=== PATIENT | female | born 1940 | race Caucasian/White ===

== ENCOUNTER → 2017-03-05 | Outpatient (CLI) | payer OTHER ==
[~2017-03-05] MED LIST: APIX1TAB3 PO; ASCO500T16 PO; CALC-354 PO; CHOL1CAP51 PO; CLC100 PO; CYAN100028 PO; DORZ2SOL OPB; DORZ2SOL19 OPR; ENOX40IN SQ; FRRG PO; FURO-85 PO; HYDR25TA4 PO; MAGNESIUM PO; METO25TA3 PO; MULT-190 PO; MULT-360 PO; OMEG10007 PO; OXYC-57 PO; POTA10CA28 PO; PRED1SUS3 OPR; RED1CAP5 PO; TIMO0.2528 OPR; VTMD1000 PO; [UNRECOGNIZED DRUG - CODE] OPR
== END | disposition home or self-care (01) ==
LOC: C.RDSM 09:43
PROVIDERS: ATTEND Physical Medicine & Rehabilitation Sports Medicine
DX: M25.512 Pain in left shoulder (principal)

== ENCOUNTER 2017-06-04 10:20 | Observation (INO) | payer OTHER ==
[2017-05-04 13:04] VITALS: BMI 40.0
--- NOTE | 2017-05-04 13:54 | PAT Medication Instructions ---
Service Date May 04, 2017. Current Home Medication List Apixaban (Eliquis), 5 MG PO BID Calcium Carbonate-Cholecalcife (Caltrate 600+D), 1 TAB PO QAM Cholecalciferol (Vitamin D3), 1 TAB PO QAM Dorzolamide Hcl (Trusopt), 1 DROP OPB QAM Dorzolamide Hcl (Trusopt Oph), 1 DROPS OPR QAM Fish Oil ([place]-3), 1 CAP PO QAM Furosemide (Lasix), 20 MG PO QAM Metoprolol Succ (Toprol Xl) (Toprol-Xl), 25 MG PO QAM Ocuvite Preservision (Ocuvite Preservision), 1 TAB PO BID Oxycodone/Acetaminophen 5MG/325MG (Percocet 5MG/325MG), 0.5 TAB PO Q6H PRN for Pain Prednisolone Acetate (Ophth) (Pred Forte 1% Oph), 1 DROPS OPR Q3D Red Yeast Rice Extract (Red Yeast Rice), 1 CAP PO QAM Timolol Maleate (Ophth) (Timoptic), 1 DROP OPR QAM [Magnesium], 250 MG PO QAM Medication Instructions For Your Scheduled Surgery - Check with surgeon and undercollar baster for instructions: Apixaban (Eliquis), 5 MG PO BID - Hold the following medications 2 weeks prior to surgery: Red Yeast Rice Extract (Red Yeast Rice), 1 CAP PO QAM Fish Oil ([place]-3), 1 CAP PO QAM - Continue as directed: Prednisolone Acetate (Ophth) (Pred Forte 1% Oph), 1 DROPS OPR Q3D - Hold the following medications the morning of surgery: Calcium Carbonate-Cholecalcife (Caltrate 600+D), 1 TAB PO QAM Cholecalciferol (Vitamin D3), 1 TAB PO QAM Furosemide (Lasix), 20 MG PO QAM Ocuvite Preservision (Ocuvite Preservision), 1 TAB PO BID [Magnesium], 250 MG PO QAM - Take the following medications the morning of surgery with a sip of water: Timolol Maleate (Ophth) (Timoptic), 1 DROP OPR QAM Oxycodone/Acetaminophen 5MG/325MG (Percocet 5MG/325MG), 0.5 TAB PO Q6H PRN for Pain (okay to take up to 4 hours prior to surgery if needed) .Metoprolol Succ (Toprol Xl) (Toprol-Xl), 25 MG PO QAM Dorzolamide Hcl (Trusopt Oph), 1 DROPS OPR QAM Dorzolamide Hcl (Trusopt), 1 DROP OPB QAM - Take the following medications as scheduled the night before surgery: Oxycodone/Acetaminophen 5MG/325MG (Percocet 5MG/325MG), 0.5 TAB PO Q6H PRN for Pain (if needed) Ocuvite Preservision (Ocuvite Preservision), 1 TAB PO BID If you have any questions please call us at [phone] or [phone] or [phone]
[2017-05-04 14:16] LABS: BASO % 0.7 %; BASO ABS # 0.06 K/uL (0-0.2); EOS % 2.4 %; HEMATOCRIT 37.4 % (37-47); HEMOGLOBIN 12.2 g/dL (12.0-16.0); IG# 0.02 K/uL (0.00-0.02); LYMPH % 22.2 %; LYMPH ABS # 1.85 K/uL (1.2-3.4); MEAN CELL VOLUME 89.5 fL (80-100); MEAN CORPUSCULAR HEMOGLOBIN 29.2 pg (25-34); MEAN CORPUSCULAR HGB CONC 32.6 g/dl (32-36); MEAN PLATELET VOLUME 11.2 fL (7.4-10.4); MONO % 6.8 %; MONO ABS # 0.57 K/uL (0.11-0.59); NEUT % 67.7 %; NEUT ABS # 5.64 K/uL (1.4-6.5); PLATELET COUNT 301 K/uL (130-400); RED CELL DISTRIBUTION WIDTH CV 14.1 % (11.5-14.5); RED CELL DISTRIBUTION WIDTH SD 46.2 fL (36.4-46.3); WHITE BLOOD COUNT 8.34 K/uL (4.8-10.8)
[2017-05-04 14:23] LABS: CALCIUM 9.3 mg/dl (8.5-10.1); CREATININE 1.53 mg/dl (0.60-1.20); POTASSIUM 4.1 mmol/L (3.5-5.1)
[2017-05-04 14:24] LABS: INR 1.1 (0.9-1.1)
--- NOTE | 2017-05-04 14:33 | DIAGNOSTIC IMAGING REPORT ---
CHEST 2 VIEWS ROUTINE CLINICAL HISTORY: 76 years-old Female presenting with preoperative assessment. TECHNIQUE: PA and lateral views of the chest were obtained. COMPARISON: 07/07/2013. FINDINGS: Atherosclerosis of the aortic arch. Cardiac silhouette normal in size. Lungs and pleural spaces clear. Degenerative changes of the thoracic spine. Degenerative changes of the left glenohumeral joint. Degenerative changes of the acromioclavicular joints. Cholecystectomy clips noted. IMPRESSION: 1. No acute cardiopulmonary disease. Electronically signed by: Jass Fournier M.D. 05/04/2017 2:32 PM Dictated Date/Time: 05/04/2017 2:31 PM
--- NOTE | 2017-06-03 16:14 | HISTORY & PHYSICAL EXAMINATION ---
DATE OF ADMISSION: 06/04/2017 CHIEF COMPLAINT: Rotator cuff arthropathy of the left shoulder. HISTORY OF PRESENT ILLNESS: Mary is a pleasant 76-year-old female who has been having a 3-month history of left shoulder pain and weakness. She had very mild crepitus in her shoulder, but full range of motion until she had a cardiac procedure done in January 2017. She woke from the surgery with very limited range of motion of her shoulder. She said she was shocked during the surgery and that may have contributed to it. Unfortunately, she has been having a lot of shoulder pain. She was initially followed by Dr. Rai of our [facility]. He gave her multiple injections and treated her conservatively, but unfortunately conservative treatment was not helping. X-rays and an MRI of her shoulder showed advanced osteoarthritis and fatty atrophy of the rotator cuff and large cuff tear. After failing conservative treatment, she elected to proceed with a reverse left shoulder arthroplasty. PAST MEDICAL HISTORY: Significant for osteoarthritis, hyperlipidemia and hypertension. PAST SURGICAL HISTORY: Significant for a heart catheterization, bilateral total knee arthroplasties, cholecystectomy, appendectomy, tonsillectomy, and cataract procedures. ALLERGIES: SURGICAL TAPE AND ANY IV PENICILLIN. MEDICATIONS: Include Eliquis, metoprolol, Lasix, prednisone eyedrops, timolol, and dorzolamide eye drops. FAMILY HISTORY: Significant for stroke and heart disease. SOCIAL HISTORY: The patient is . Never drinks. She lives alone, has 1 child. She does little activity. REVIEW OF SYSTEMS: She complains mostly of left shoulder pain and weakness. All other pertinent review of systems are negative. PHYSICAL EXAMINATION: GENERAL: She is awake, alert and orient x3. She is in no apparent distress. She is very pleasant. HEENT: Pupils equal, round, and reactive to light. Extraocular movements intact. Oral mucosa is pink and moist. HEART: Regular rate per radial pulse. LUNGS: Alondra symmetrically bilaterally with no audible breath sounds. ABDOMEN: Soft, nontender, and nondistended. MUSCULOSKELETAL: On physical examination of the left shoulder, she has about 30 degrees of forward elevation and 20 degrees of abduction. Passively, I can get her further, but she has a lot of crepitus. She has 3/5 muscle strength with external rotation. Her radial, median, ulnar and axillary nerves were all checked and intact. She has a lot of pain over the anterior glenohumeral joint line. MRI of the shoulder does show advanced arthritis of the glenohumeral joint. There was a complete rotator cuff tear with severe atrophy of the muscle bellies. X-rays of the shoulder do show advanced osteoarthritis with joint space narrowing, osteophyte formation and mild superior migration of the humeral head. IMPRESSION: Rotator cuff arthropathy of the left shoulder. PLAN: She is having a lot of pain and difficulty with function with her left shoulder. She elected to proceed with a reverse left shoulder arthroplasty. Postoperatively, she will be placed in an arm sling and kept overnight at the hospital for postoperative medical management.
[~2017-06-04] VITALS: Ht 157.5 cm; Wt 100.2 kg
[2017-06-04] VITALS (9 sets, daily range): BP systolic 91–172; BP diastolic 52–80; PULSE 55–78; TEMP 36.3–36.8; O2SAT 92–99; Ht 157.5 cm; Wt 100.2 kg
[2017-06-04] MEDS: TRANEXAMIC ACID INJ 1,000 MG x 2 Bags IV SCH ×4 (06:30→11:42)
[~2017-06-04 10:20] MED LIST changes: +ACETAMINOPHEN 500 MG TAB PO SCH; -ASCO500T16 PO; +ATROPINE SULFATE 0.1 MG/ML 5ML SYR IV PRN; -CHOL1CAP51 PO; -CLC100 PO; +CLINDAMYCIN 600 MG/54 ML D5W 54 ML IV SCH; +CLONIDINE HCL 100 MCG/ML SYRINGE ONE; -CYAN100028 PO; +DORZ2SOL17 OPR; -DORZ2SOL19 OPR; -ENOX40IN SQ; +EpHEDrine SULFATE INJ 50 MG/ML AMP IV PRN; +FAMOTIDINE 20 MG TAB PO SCH; +FENTANYL CITRATE INJ 50 MCG/1 ML 2 ML VIAL IV PRN; +FLUMAZENIL 0.1 MG/1 ML 10 ML VIAL IV PRN; -FRRG PO; +GABAPENTIN 300 MG CAP PO SCH; -HYDR25TA4 PO; +HYDROmorphone INJ 0.5 MG/0.5 ML SYR IV PRN; +LABETALOL HCL IV 5 MG/ML 20ML IV PRN; +LACTATED RINGER'S 1000ML 1,000 ML IV SCH; +LACTATED RINGER'S 1000ML IV SCH; +MEPERIDINE HCL 25 MG/ML CARP IV PRN; -MULT-360 PO; +NALOXONE HCL 0.4 MG/1 ML VIAL/CARP IV PRN; +ONDANSETRON INJ 2 MG/ML 2 ML VIAL IV PRN; +PHENYLEPHRINE 100MCG/ML 5ML SYR IV PRN; -POTA10CA28 PO; +ROPIVACAINE 0.5% 5 MG/ML 30 ML VIAL ONE; +ROPIVACAINE 5MG/ML 30 ML 150 MG, BUPIVACAINE 0.5% MPF INJ 30 ML, EpINEphrine HCL INJ 0.... INFIL SCH; -[UNRECOGNIZED DRUG - CODE] OPR
--- NOTE | 2017-06-04 10:22 | History & Physical Bridge Note ---
H&P Re-Evaluation Bridge Note: I have examined the patient, reviewed the History & Physical and in the interval since the performance of the History & Physical I have noted the following changes of clinical significance: No changes noted
[2017-06-04] MEDS ORDERED: ORTHO JOINT ANESTHETIC ONE (10:59)
[2017-06-04] MEDS ORDERED: BACITRACIN 50000 UNIT VIAL ONE (10:59)
[2017-06-04] MEDS ORDERED: FENTANYL CITRATE INJ 50 MCG/1 ML 2 ML VIAL ONE (11:27)
[2017-06-04] MEDS ORDERED: LIDOCAINE HCL 2% 2 ML VIAL (20MG/ML) ONE (11:27)
[2017-06-04] MEDS ORDERED: ONDANSETRON INJ 2 MG/ML 2 ML VIAL ONE (11:27)
[2017-06-04] MEDS ORDERED: PROPOFOL IV EMULSION 10 MG/ML 20 ML VIAL IV ONE (11:27)
[2017-06-04] MEDS ORDERED: MIDAZOLAM HCL 1 MG/ML 2ML VIAL ONE ×2 (11:27)
[2017-06-04] MEDS ORDERED: DEXAMETHASONE SOD INJ 4 MG/ML VIAL ONE (11:27)
[2017-06-04] MEDS ORDERED: EpHEDrine SULFATE 50MG/5ML SYR ONE (13:01)
[2017-06-04] MEDS ORDERED: PHENYLEPHRINE 100MCG/ML 5ML SYR ONE (13:01)
[2017-06-04] MEDS ORDERED: GLYCOPYRROLATE INJ 0.2 MG/ML VIAL ONE (13:33)
[2017-06-04] MEDS ORDERED: NEOSTIGMINE METHYLSULFATE 5 MG/5 ML SYR ONE (13:33)
--- NOTE | 2017-06-04 13:46 | [facility] Post Operative Brief Note ---
Immediate Operative Summary Operative Date Jun 04, 2017. Pre-Operative Diagnosis Rotator cuff arthropathy of the left shoulder Post-Operative Diagnosis Rotator cuff arthropathy of the left shoulder Procedure(s) Performed Left Reverse Total Shoulder Arthroplasty Uncemented Surgeon Dr Drake Boat Hoist Operator Helper Surgeon(s) Vijay Greenberg Estimated Blood Loss 250cc Findings Consistent with Post-Op Diagnosis Specimens As Per surgeon A. Humeral Head Left Anesthesia Type General Regional Complication(s) none Disposition Disposition: Recovery Room / PACU
[2017-06-04] MEDS ORDERED: METOCLOPRAMIDE HCL INJ 5 MG/ML 2 ML VIAL IV PRN (14:00)
[2017-06-04] MEDS ORDERED: ONDANSETRON INJ 2 MG/ML 2 ML VIAL IV PRN (14:00)
[2017-06-04] MEDS ORDERED: MoRPHine SULFATE 2 MG/ML CARP IV PRN (14:00)
[2017-06-04] MEDS ORDERED: NALOXONE HCL 0.4 MG/1 ML VIAL/CARP IV PRN (14:00)
[2017-06-04] MEDS ORDERED: PrednisoLONE ACET 1% OP SUSP 5 ML BTL OPR SCH (14:00)
[2017-06-04] MEDS ORDERED: OXYCODONE/ACETAMINOPHEN 5-325 TAB PO PRN (14:00)
[2017-06-04] MEDS ORDERED: SOD PHOSPHATE/SOD BIPHOSPHATE ENEMA 132 ML BTL PR PRN (14:00)
[2017-06-04] MEDS ORDERED: BISACODYL 10 MG SUPP PR PRN (14:00)
[2017-06-04] MEDS ORDERED: MAGNESIUM HYDROXIDE SUSP 30 ML UDC PO PRN (14:00)
--- NOTE | 2017-06-04 14:24 | DIAGNOSTIC IMAGING REPORT ---
L SHOULDER MIN 2 VIEWS ROUTINE CLINICAL HISTORY: Post shoulder surgery COMPARISON: 03/05/2017 DISCUSSION: Total left shoulder arthroplasty in good position. Good contact between prosthetic and underlying bone. Expected soft tissue postoperative change. IMPRESSION: Anatomic alignment posttotal left shoulder arthroplasty. The above report was generated using voice recognition software. It may contain grammatical, syntax or spelling errors. Electronically signed by: Reynaldo Virk M.D. 06/04/2017 2:22 PM Dictated Date/Time: 06/04/2017 2:21 PM
--- NOTE | 2017-06-04 14:31 | OPERATIVE REPORT ---
DATE OF OPERATION: 06/04/2017 PREOPERATIVE DIAGNOSIS: Cuff arthropathy of the left shoulder. POSTOPERATIVE DIAGNOSIS: Same. PROCEDURE: Reverse left total shoulder arthroplasty. SURGEON: Dr. Bradford Drake. STRIPE MARKER: Vijay Greenberg PA-C, whose assistance was necessary for retraction and closure. ANESTHESIA: General with a left interscalene nerve block. COMPLICATIONS: None. CONDITION: Stable to PACU. IMPLANTS USED: I used a [employer]omet comprehensive reverse left shoulder arthroplasty system with a size 11 mini stem, a 25 mm mini baseplate, a 36 mm eccentric standard glenosphere, a 25 mm central screw, 2 peripheral locking screws and a +3 retentive polyethylene insert. INDICATIONS: Mary is a pleasant 77-year-old female who presented to my office with severe left shoulder pain and weakness. MRI and clinical examination were all diagnostic for cuff arthropathy of the left shoulder. After failing extensive conservative treatment, she elected to proceed with a reverse left shoulder arthroplasty. OPERATION AND FINDINGS: On 06/04/2017, she arrived at [facility] for the above procedure. She was seen in preoperative holding and the operative extremity was identified and signed. She was given a preoperative antibiotic and a left interscalene nerve block. She was taken back to the operating room, laid on table in supine position and put under general anesthesia. She was put into the beachchair position. The left shoulder was prepped and draped in sterile fashion. Time-out was done. The patient's operative extremity was properly identified. A deltopectoral approach was used. Dissection was taken down through the fascia and the anterior shoulder was exposed. The long head of biceps tendon was tenodesed to the upper border of the major. There was a tear of the entire interspace and most of the supraspinatus. The subscapularis was intact and then tenotomized off the lesser tuberosity. The proximal humerus was then exposed. Sequential reaming up to a size 11 reamer was done. Off that reamer, a proximal humeral resection guide was placed and the proximal humerus was resected at 135 degrees of inclination and 20 degrees of retroversion. The head was removed and the glenoid was exposed. Time was spent doing a complete circumferential capsular and labral release. An Arthrex signature guide was then snapped on to the anterior aspect of the glenoid and a guide pin was placed in the reverse shoulder arthroplasty hole. A 25 mm mini baseplate was then reamed and the baseplate was then impacted into place. A single central screw was placed followed by superior and inferior locking screws. A 36 mm eccentric glenosphere was then impacted into place. The proximal humerus was then exposed. Sequential broaching up to size 11 broach was done. A standard humeral tray was trialed and seemed to be a little bit loose. A +3 retentive was trialled and seemed to be a much better fit. The broach was then removed. The final size 11 implant was then impacted into place. A standard humeral tray was placed with a +3 retentive bearing. The shoulder was then reduced, brought through a full range of motion and felt to be stable. The surrounding soft tissues were injected with 100 mL of an orthopedic pain control cocktail. The wound was then irrigated with 3 liters normal saline solution with bacitracin. The subscapularis was then tenodesed back to the lesser tuberosity with transosseous FiberWire sutures. The axillary nerve was palpated. A drain was placed. Skin was closed with 2-0 Vicryl, 3-0 V-Loc suture and melissa. She was placed in a soft dressing and regular arm sling. She was then extubated, transferred to a [facility] and taken to postanesthesia care in stable condition. She tolerated the procedure well. I attest to the content of the Intraoperative Record and any orders documented therein. Any exception s are noted below.
--- NOTE | 2017-06-04 15:14 | Anesthesiology Progress Note ---
Anesthesia Post Op Note Date & Time Jun 04, 2017 at 15:14 Vital Signs Pain Intensity: 0.0 Vital Signs Past 12 Hours Date Time Temp Pulse Resp B/P (MAP) Pulse Ox O2 Delivery O2 Flow Rate FiO2 06/04/17 14:59 97 Nasal Cannula 2.0 06/04/17 14:56 36.3 63 14 100/65 (77) 95 Nasal Cannula 2.0 06/04/17 14:40 36.0 67 16 116/55 96 Nasal Cannula 2 06/04/17 14:30 75 13 116/57 98 Nasal Cannula 2 06/04/17 14:20 72 15 123/56 98 Oxymask 10 06/04/17 14:10 85 14 126/60 98 Oxymask 10 06/04/17 14:04 36.4 96 12 130/67 97 Oxymask 10 06/04/17 10:44 36.8 76 18 172/80 98 Room Air Notes Mental Status: alert / awake / arousable, participated in evaluation Pt Amnestic to Procedure: Yes Nausea / Vomiting: adequately controlled Pain: adequately controlled Airway Patency, RR, SpO2: stable & adequate BP & HR: stable & adequate Hydration State: stable & adequate Anesthetic Complications: no major complications apparent
[2017-06-04] MEDS: KETOROLAC TROMETHAMINE 15 MG/ML VIAL IV. SCH ×2 (15:53→22:05)
[2017-06-04] MEDS: POTASSIUM CHLORIDE INJ 10 MEQ in SODIUM CHLORIDE 0.9% 1000ML 1,000 ML IV SCH (15:53)
[2017-06-04] MEDS ORDERED: NURSING VERBAL MED ORDER ONE (16:00)
[2017-06-04] MEDS ORDERED: COUGH DROP (SUGAR FREE) LOZ 24 LOZ/1 BOX LOZ PRN (16:15)
[2017-06-04] MEDS ORDERED: IV FLUIDS COMPLETED PRN (16:30)
[2017-06-04] MEDS: CLINDAMYCIN IV 600 MG in DEXTROSE 5% 50ML 50 ML IV SCH (20:39)
[2017-06-04] MEDS: DOCUSATE SODIUM 100 MG CAP PO SCH (20:41)
[2017-06-04] MEDS: APIXABAN 2.5 MG TAB PO SCH (20:42)
[2017-06-04] MEDS ORDERED: SENNA 8.6 MG TAB PO SCH (21:00)
[2017-06-05] MEDS: POTASSIUM CHLORIDE INJ 10 MEQ in SODIUM CHLORIDE 0.9% 1000ML 1,000 ML IV SCH ×2 (01:42→11:36)
[2017-06-05 03:51] VITALS: BP 100/60; PULSE 72; TEMP 36.6; O2SAT 94
[2017-06-05] MEDS: KETOROLAC TROMETHAMINE 15 MG/ML VIAL IV. SCH ×2 (04:20→10:37)
[2017-06-05] MEDS: CLINDAMYCIN IV 600 MG in DEXTROSE 5% 50ML 50 ML IV SCH (04:20)
[2017-06-05 05:49] LABS: HEMATOCRIT 29.6 % (37-47); HEMOGLOBIN 9.4 g/dL (12.0-16.0); MEAN CELL VOLUME 88.1 fL (80-100); MEAN CORPUSCULAR HGB CONC 31.8 g/dl (32-36); PLATELET COUNT 248 K/uL (130-400); RED CELL DISTRIBUTION WIDTH CV 13.8 % (11.5-14.5); RED CELL DISTRIBUTION WIDTH SD 45.2 fL (36.4-46.3); WHITE BLOOD COUNT 13.84 K/uL (4.8-10.8)
[2017-06-05 06:19] LABS: CALCIUM 7.8 mg/dl (8.5-10.1); CREATININE 1.76 mg/dl (0.60-1.20); POTASSIUM 4.4 mmol/L (3.5-5.1)
[2017-06-05 07:15] VITALS: BP 112/58; PULSE 78; TEMP 36.6; O2SAT 96
[2017-06-05] MEDS ORDERED: OXYC-57 PO (07:20)
--- NOTE | 2017-06-05 07:21 | Discharge Instructions ---
Discharge Instructions Date of Service Jun 05, 2017. Admission Reason for Admission: Chronic Left Shoulder Rotator Cuff Tear Discharge Discharge Diagnosis / Problem: Left Reverse Total Shoulder Discharge Goals Goal(s): Decrease discomfort, Improve function Activity Recommendations Activity Limitations: as noted below . Instructions / Follow-Up Instructions / Follow-Up Activity and Therapy Recommendations: * Wear your sling for 3 weeks, unless otherwise instructed. You may remove your sling to shower and to dress, but otherwise, you should be in your sling at all times, including while sleeping * The shoulder replacement is very stable and you can use your hand while in the sling * Physical Therapy should start about 3-5 days from your day of surgery. Therapy will last about 8-12 weeks * You were shown a series of exercises in the hospital. Do these exercises daily including the exercises you were shown in physical therapy. Medications: * Narcotic You will likely be sent home from the hospital with a prescription for the narcotic pain medication that worked best throughout your stay. * Other medications may be prescribed for specific circumstances. If you have any questions, please call the office at . * Resume previous home medications unless otherwise instructed Dressing Care: If the incision is not draining then you may leave the melissa open to air. If there is a little bit of drainage or if the melissa are getting stuck on your clothing then cover the incision with a dry dressing. The melissa will be removed at your 2 week follow-up appointment. Showering: You may shower 5 days from the day of surgery. Let the soapy shower water run over the melissa and pat them dry. Do not scrub or soak the incision. Things To Watch For: * Drainage from the incision site that occurs more than one week after your surgery. * Increased redness at the incision site. * Fever above 102 degrees Fahrenheit. * Unusual chest pain or shortness of breath. * Call [facility] at with any of the above problems Follow-Up Visit: Follow-up with Dr. Drake 2 weeks after your day of surgery. An appointment was probably scheduled when you signed-up for surgery in the office. If you have any questions call Office Instructions: More detailed instructions as well as Frequently Asked Questions were provided in a folder by our office when you signed-up for surgery. Please review these instructions when you get home. If you have any further questions or concerns, please feel free to call the office at [phone] Current Hospital Diet Patient's current hospital diet: Regular Diet Discharge Diet Recommended Diet: Regular Diet Procedures Procedures Performed: Left Reverse Total Shoulder Arthroplasty Uncemented Pending Studies Studies pending at discharge: no Medical Emergencies . Who to Call and When: Medical Emergencies: If at any time you feel your situation is an emergency, please call 911 immediately. . Non-Emergent Contact Non-Emergency issues call your: Surgeon Call Non-Emergent contact if: wound has increased drainage, wound has increased redness . "Provider Documentation" section prepared by Bradford Drake. .
--- NOTE | 2017-06-05 07:49 | PROGRESS NOTE ---
DATE: 06/05/2017 CHIEF COMPLAINT: Status post reverse left shoulder arthroplasty postop day #1. PROGRESS: Mary was seen and examined at bedside today. Overall, she is doing fairly well. She had little to no pain in the left shoulder. She had no acute events overnight and has no complaints. PHYSICAL EXAMINATION: LEFT SHOULDER: The dressing is clean and dry. The Hemovac is to suction. Her radial, median and ulnar nerves were all checked and intact at her wrist. Her axillary nerve was not checked yet. She is in a sling as instructed. LABORATORIES: She has an H&H today of 9.4 and 29.6. Her vital signs are all stable on room air. She is voiding on her own. The Hemovac has had 0 output. X-rays postoperatively of the left shoulder show the prosthesis to be in anatomic alignment without any evidence of fracture, dislocation or loosening. IMPRESSION: Status post left reverse shoulder arthroplasty postop day #1. Overall, she is doing very well. She will be seen by physical therapy today for hand, wrist, elbow and pendulum exercises. We will continue oxycodone for pain control and we will discharge her to home later this morning.
--- NOTE | 2017-06-05 07:56 | DISCHARGE SUMMARY ---
DISCHARGE DIAGNOSIS: Rotator cuff arthropathy of the left shoulder. PROCEDURE: Left reverse shoulder arthroplasty on 06/04/[address] Bradford Drake. DISCHARGE INSTRUCTIONS: 1. Left arm sling for 3 weeks. 2. Percocet 5/325 half a tab every 6 hours as needed for pain. 3. Eliquis 5 mg twice a day. 4. Trusopt 2% solution daily. 5. Lasix 20 mg daily. 6. Toprol 25 mg daily. 7. Prednisone eyedrops every third day. 8. Timoptic 0.25% daily. 9. Continue all other vitamins, minerals and [id number] supplementation. 10. Follow up with Dr. Drake in 2 weeks. 11. Call the office of Dr. Drake with any questions or concerns. HOSPITAL COURSE: Mary is a pleasant 77-year-old female who presented to my office with chronic increasing left shoulder pain and weakness. X-RAYS: MRI and clinical examination were all diagnostic for rotator cuff arthropathy of the left shoulder. After failing conservative treatment, she elected to undergo a reverse left shoulder arthroplasty. On 06/04/2017, she arrived at [facility] and underwent a reverse left shoulder arthroplasty without complication. She had a general anesthetic and a left interscalene nerve block. Postoperatively, she was placed in an arm sling and discharged to general orthopedic floor. On postop day #1, she was doing very well. Her H&H was stable at 9.4 and 29.6. She was able to participate with physical therapy and do hand, wrist, elbow and pendulum exercises. The nursing staff pulled the dressing and she was subsequently discharged to home with the above instructions.
[2017-06-05] MEDS ORDERED: MULTIVITAMIN TAB PO SCH (09:00)
[2017-06-05] MEDS ORDERED: DORZOLAMIDE HCL 2% OPH SOLN 10 ML BTL OPB SCH (09:00)
[2017-06-05] MEDS ORDERED: METOPROLOL SUCC 25MG EXT REL TAB PO SCH (09:00)
[2017-06-05] MEDS ORDERED: FUROSEMIDE 20 MG TAB PO SCH (09:00)
[2017-06-05] MEDS ORDERED: TIMOLOL MALEATE 0.25% OP SOLN 5 ML BTL OPR SCH (09:00)
[2017-06-05] MEDS: APIXABAN 2.5 MG TAB PO SCH (09:55)
[2017-06-05] MEDS: DOCUSATE SODIUM 100 MG CAP PO SCH (09:55)
[2017-06-05 11:07] VITALS: BP 109/62; PULSE 88; O2SAT 96
[2017-06-05 11:43] VITALS: BP 109/62; PULSE 88; TEMP 36.6; O2SAT 96
== END 2017-06-05 13:15 | disposition home health service (06) ==
LOC: C.ACU 10:20 → C.3E 13:51 → ENRESERV 14:37
PROVIDERS: ADMIT Orthopaedic Surgery; ATTEND Orthopaedic Surgery
DX: M19.012 Primary osteoarthritis, left shoulder (principal); I25.10 Atherosclerotic heart disease of native coronary artery without angina pectoris; I10 Essential (primary) hypertension; E78.5 Hyperlipidemia, unspecified; I48.91 Unspecified atrial fibrillation; M19.90 Unspecified osteoarthritis, unspecified site; E66.9 Obesity, unspecified; Z68.41 Body mass index [BMI] 40.0-44.9, adult; Z88.0 Allergy status to penicillin; Z96.653 Presence of artificial knee joint, bilateral; Z90.49 Acquired absence of other specified parts of digestive tract; Z83.3 Family history of diabetes mellitus; Z82.3 Family history of stroke